=== PATIENT | male | born 1945 | race Caucasian/White ===

== ENCOUNTER 2023-05-09 16:44 | Inpatient (IN) ==
[2023-05-09] MEDS ORDERED: Albuterol/Ipratropium NEB.SOL (2.5/0.5 MG) 3 ML NEB.SOLN INH ONE ×3 (17:18→18:27)
[2023-05-09] MEDS ORDERED: Albuterol/Ipratropium NEB.SOL (2.5/0.5 MG) 3 ML NEB.SOLN ONE (17:25)
[2023-05-09 17:34] LABS: Hematocrit 27.8 % (38-53); Hemoglobin 8.7 g/dL (13.2-16.3); Mean Corpuscular Hemoglobin 23.7 pg (27-33); Mean Corpuscular Hgb Conc 31.2 g/dL (31-36); Red Blood Count 3.66 10^6/uL (4.06-5.63); Red Cell Distribution Width 19.1 % (12-17); White Blood Count 13.7 10^3/uL (3.6-10.2)
[2023-05-09 17:41] LABS: ALT 9 U/L (7-52); Albumin/Globulin Ratio 0.9 (1-3); Alkaline Phosphatase 66 U/L (35-149); Blood Urea Nitrogen 26 mg/dL (6-24); CO2 Carbon Dioxide 30 mmol/L (22-32); Calcium 8.6 mg/dL (8.6-10.3); Chloride 109 mmol/L (101-111); Creatinine, Serum 1.33 mg/dL (0.67-1.17); Globulin 3.5 g/dL (2-4); Glucose 152 mg/dL (70-100); Sodium 142 mmol/L (135-145); Total Protein 6.5 g/dL (6.4-8.9); eGFR CKD-EPI 55.7 (>60)
[2023-05-09 17:44] LABS: High Sens Troponin Baseline 25 pg/mL (<20)
[2023-05-09 17:56] LABS: Anion Gap 3 mmol/L (2-16)
[2023-05-09 17:57] LABS: Platelet Count Platelets clumped. 10^3/uL (150-450)
[2023-05-09 17:58] LABS: ABS Basophils 0.2 10^3/uL (0.0-0.1); ABS Eosinophils 0.3 10^3/uL (0.0-0.5); ABS Monocytes 0.8 10^3/uL (0.0-1.1); ABS Neutrophils 11.5 10^3/uL (1.5-7.6); ABS Nucleated RBC 0.01 10^3/ul; Eosinophil % 2.1 %; Lymphocyte % 7.2 %; Nucleated Red Blood Cells % 0.1 /100 WBC (0.0-0.4)
[2023-05-09 19:07] LABS: PCO2 Arterial 55 mmHg (35-45); PO2 Arterial 103 mmHg (80-100)
[2023-05-09 19:21] LABS: Potassium Redraw 3.2 mmol/L (3.5-5.0)
[2023-05-09] MEDS ORDERED: Ondansetron 4 mg VIAL 2 MG/ML 2 ml VIAL IV PRN (19:23)
[2023-05-09] MEDS ORDERED: Albuterol HFA INHALER 8 gm MDI INH PRN (20:35)
[2023-05-09] MEDS ORDERED: DOXEPIN 3 MG PO PRN (20:35)
[2023-05-09] MEDS ORDERED: Dextrose 50% Syringe 50 ml 25 GM/50 ML SYRINGE IV PUSH PRN (20:48)
[2023-05-09] MEDS: Enoxaparin 40 MG/0.4 ML SYR SUBCUT SCH (21:35)
[2023-05-09] MEDS: DULoxetine DR 60 mg CAP PO SCH (22:01)
[2023-05-10 05:19] LABS: Hematocrit 24.6 % (38-53); Mean Corpuscular Hemoglobin 24.5 pg (27-33); Mean Corpuscular Hgb Conc 32.5 g/dL (31-36); Mean Corpuscular Volume 75.3 fL (80-97); Mean Platelet Volume 8.2 fL (7.5-11.2); Platelet Count 262 10^3/uL (150-450); Red Blood Count 3.26 10^6/uL (4.06-5.63); Red Cell Distribution Width 18.6 % (12-17); White Blood Count 6.6 10^3/uL (3.6-10.2)
[2023-05-10 05:49] LABS: Calcium 8.8 mg/dL (8.6-10.3); Creatinine, Serum 1.36 mg/dL (0.67-1.17); Magnesium 2.4 mg/dL (1.9-2.7); Potassium 5.4 mmol/L (3.5-5.0); eGFR CKD-EPI 54.3 (>60)
[2023-05-10 06:13] LABS: Anisocytosis 1+
[2023-05-10 06:14] LABS: ABS Lymphocytes 0.7 10^3/uL (1.0-4.8); ABS Monocytes 0.3 10^3/uL (0.0-1.1); ABS Neutrophils 5.5 10^3/uL (1.5-7.6); Eosinophil % 0.1 %; Lymphocyte % 10.6 %
[2023-05-10] MEDS ORDERED: INSULIN GLARGINE (NF) 300 UNIT/ML INJ SUBCUT SCH (09:00)
[2023-05-10] MEDS ORDERED: Umeclidin/Vilant 62.5 MDI 62.5/25 mcg 14 INH ELLIPTA DEVICE INH SCH (09:00)
[2023-05-10] MEDS ORDERED: Albuterol 2.5mg/3 ml (0.083%) NEB.SOLN INH ONE (09:07)
[2023-05-10] MEDS ORDERED: Acetylcysteine INH SOL (RT) 200 MG/ML 4 ML VIAL INH ONE (09:07)
[2023-05-10] MEDS: Tiotropium Brom/Olodaterol MDI INH SCH (09:24)
[2023-05-10] MEDS ORDERED: Acetylcysteine INHALATION SOL 200 MG/ML NEB.SOLN 10 ML INH PRN (09:24)
[2023-05-10] MEDS ORDERED: Albuterol 2.5mg/3 ml (0.083%) NEB.SOLN INH PRN (09:28)
[2023-05-10] MEDS: Aspirin EC 81 mg TAB.EC (enteric coated) PO SCH (09:33)
[2023-05-10] MEDS: DULoxetine DR 60 mg CAP PO SCH ×2 (09:33→20:20)
[2023-05-10] MEDS: CMCS: Roflumilast 500 mcg TAB (NF) PO SCH (09:35)
[2023-05-10] MEDS: Insulin GLARGINE 100 un/ml 10 ml VIAL SUBCUT SCH (10:14)
[2023-05-10] MEDS ORDERED: Albuterol/Ipratropium NEB.SOL (2.5/0.5 MG) 3 ML NEB.SOLN INH PRN (15:40)
[2023-05-10] MEDS ORDERED: Albuterol/Ipratropium NEB.SOL (2.5/0.5 MG) 3 ML NEB.SOLN INH ONE (15:41)
[2023-05-10 18:09] LABS: Body Fluid Appearance Cloudy; Body Fluid Color Yellow; Body Fluid Source Pleural Fluid
[2023-05-10 18:45] LABS: Body Fluid WBC 514 /mcL
[2023-05-10 19:58] LABS: Body Fluid Mono 22 %; Body Fluid Other Cells 32; Body Fluid Total Cells Counted 200
[2023-05-10] MEDS: Enoxaparin 40 MG/0.4 ML SYR SUBCUT SCH (20:20)
[2023-05-11 06:49] LABS: ABS Basophils 0.3 10^3/uL (0.0-0.1); ABS Eosinophils 0.6 10^3/uL (0.0-0.5); ABS Lymphocytes 2.7 10^3/uL (1.0-4.8); ABS Monocytes 0.9 10^3/uL (0.0-1.1); ABS Neutrophils 7.9 10^3/uL (1.5-7.6); ABS Nucleated RBC 0.01 10^3/ul; Hematocrit 26.7 % (38-53); Hemoglobin 8.7 g/dL (13.2-16.3); Lymphocyte % 21.6 %; Mean Corpuscular Hemoglobin 24.6 pg (27-33); Mean Corpuscular Hgb Conc 32.8 g/dL (31-36); Mean Platelet Volume 8.3 fL (7.5-11.2); Nucleated Red Blood Cells % 0.1 /100 WBC (0.0-0.4); Platelet Count 263 10^3/uL (150-450); Red Blood Count 3.56 10^6/uL (4.06-5.63); Red Cell Distribution Width 19.4 % (12-17); White Blood Count 12.5 10^3/uL (3.6-10.2)
[2023-05-11 07:00] LABS: Calcium 8.8 mg/dL (8.6-10.3); Creatinine, Serum 1.36 mg/dL (0.67-1.17); Potassium 4.3 mmol/L (3.5-5.0); eGFR CKD-EPI 54.3 (>60)
[2023-05-11] MEDS: Tiotropium Brom/Olodaterol MDI INH SCH (07:02)
[2023-05-11] MEDS: DULoxetine DR 60 mg CAP PO SCH ×2 (08:26→20:39)
[2023-05-11] MEDS: Aspirin EC 81 mg TAB.EC (enteric coated) PO SCH (08:26)
[2023-05-11] MEDS: CMCS: Roflumilast 500 mcg TAB (NF) PO SCH (10:05)
[2023-05-11] MEDS: Insulin GLARGINE 100 un/ml 10 ml VIAL SUBCUT SCH (10:06)
[2023-05-11] MEDS: Albuterol 2.5mg/3 ml (0.083%) NEB.SOLN INH SCH ×2 (12:10→19:11)
[2023-05-11] MEDS ORDERED: Acetylcysteine INHALATION SOL 200 MG/ML NEB.SOLN 10 ML INH SCH (16:00)
[2023-05-11] MEDS: Acetylcysteine INHALATION SOL 200 MG/ML NEB.SOLN 10 ML INH SCH (19:11)
[2023-05-11] MEDS: Enoxaparin 40 MG/0.4 ML SYR SUBCUT SCH (20:40)
[2023-05-12] MEDS: Albuterol 2.5mg/3 ml (0.083%) NEB.SOLN INH SCH ×4 (01:15→19:22)
[2023-05-12] MEDS: Acetylcysteine INHALATION SOL 200 MG/ML NEB.SOLN 10 ML INH SCH ×4 (01:15→19:23)
[2023-05-12] MEDS ORDERED: Lactated Ringers 1000 ml BAG 1,000 ML IV SCH (06:00)
[2023-05-12 07:11] LABS: Hematocrit 24.2 % (38-53); Hemoglobin 7.7 g/dL (13.2-16.3); Mean Corpuscular Hemoglobin 24.3 pg (27-33); Mean Platelet Volume 8.7 fL (7.5-11.2); Platelet Count 175 10^3/uL (150-450); Red Blood Count 3.18 10^6/uL (4.06-5.63); Red Cell Distribution Width 19.8 % (12-17); White Blood Count 9.1 10^3/uL (3.6-10.2)
[2023-05-12 07:26] LABS: Calcium 8.5 mg/dL (8.6-10.3); Creatinine, Serum 1.32 mg/dL (0.67-1.17); Magnesium 2.5 mg/dL (1.9-2.7); Potassium 3.9 mmol/L (3.5-5.0); eGFR CKD-EPI 56.2 (>60)
[2023-05-12] MEDS: Tiotropium Brom/Olodaterol MDI INH SCH (07:29)
[2023-05-12] MEDS ORDERED: Metoclopramide 5 MG/ML VIAL (10 mg) ONE (10:15)
[2023-05-12] MEDS ORDERED: Rocuronium 50 mg VIAL 10 mg/ml 5 ml VIAL (50 mg) ONE (10:15)
[2023-05-12] MEDS ORDERED: fentaNYL 100 mcg/2 ml 50 MCG/ML VIAL ONE (10:15)
[2023-05-12] MEDS ORDERED: Ondansetron 4 mg VIAL 2 MG/ML 2 ml VIAL ONE (10:15)
[2023-05-12] MEDS ORDERED: Propofol 10 MG/ML 20 ML BTL ONE (10:15)
[2023-05-12] MEDS ORDERED: fentaNYL 100 mcg/2 ml 50 MCG/ML VIAL IV PRN (10:22)
[2023-05-12] MEDS ORDERED: Naloxone 0.4 mg VIAL 0.4 mg/ml 1 ml VIAL IV PRN (10:22)
[2023-05-12] MEDS ORDERED: Prochlorperazine 5 mg/ml 2 ml VIAL (10 mg) IV PRN (10:22)
[2023-05-12] MEDS ORDERED: Albuterol 2.5mg/3 ml (0.083%) NEB.SOLN INH ONE (11:36)
[2023-05-12] MEDS ORDERED: Albuterol/Ipratropium NEB.SOL (2.5/0.5 MG) 3 ML NEB.SOLN INH ONE ×2 (11:52→12:09)
[2023-05-12] MEDS ORDERED: Albuterol/Ipratropium NEB.SOL (2.5/0.5 MG) 3 ML NEB.SOLN ONE ×2 (11:54→12:18)
[2023-05-12] MEDS ORDERED: Furosemide 20 mg/2 ml IV VIAL IV SLOW PU ONE (12:09)
[2023-05-12] MEDS ORDERED: Furosemide 40 mg/4 ml IV VIAL IV SLOW PU ONE (12:09)
[2023-05-12] MEDS ORDERED: Furosemide 20 mg/2 ml IV VIAL ONE (12:20)
[2023-05-12] MEDS: Insulin GLARGINE 100 un/ml 10 ml VIAL SUBCUT SCH (14:29)
[2023-05-12] MEDS: Aspirin EC 81 mg TAB.EC (enteric coated) PO SCH (14:32)
[2023-05-12] MEDS: CMCS: Roflumilast 500 mcg TAB (NF) PO SCH (14:32)
[2023-05-12] MEDS: DULoxetine DR 60 mg CAP PO SCH ×2 (14:33→21:33)
[2023-05-12] MEDS: Enoxaparin 40 MG/0.4 ML SYR SUBCUT SCH (21:33)
[2023-05-13 02:19] LABS: PCO2 Arterial 49 mmHg (35-45); PO2 Arterial 94 mmHg (80-100)
[2023-05-13] MEDS: Albuterol 2.5mg/3 ml (0.083%) NEB.SOLN INH SCH ×5 (02:38→23:12)
[2023-05-13] MEDS: Acetylcysteine INHALATION SOL 200 MG/ML NEB.SOLN 10 ML INH SCH ×5 (02:38→23:12)
[2023-05-13] MEDS: Tiotropium Brom/Olodaterol MDI INH SCH (07:43)
[2023-05-13] MEDS ORDERED: Lorazepam PYXIS KEY PRN (09:20)
[2023-05-13] MEDS ORDERED: LORazepam 2 mg VIAL 1 ml IV PUSH ONE (09:20)
[2023-05-13] MEDS: Insulin GLARGINE 100 un/ml 10 ml VIAL SUBCUT SCH (09:47)
[2023-05-13] MEDS: CMCS: Roflumilast 500 mcg TAB (NF) PO SCH (09:48)
[2023-05-13] MEDS: Aspirin EC 81 mg TAB.EC (enteric coated) PO SCH (09:48)
[2023-05-13] MEDS: DULoxetine DR 60 mg CAP PO SCH ×2 (09:48→21:12)
[2023-05-13 10:27] LABS: Fluid Type, Protein, Total PLEURAL; Glucose, BF 224 mg/dL; Lactate Dehydrogenase, BF 96 U/L
[2023-05-13] MEDS ORDERED: Morphine 2 MG/ML SYRINGE IV ONE (11:25)
[2023-05-13 11:58] LABS: Fluid Type, Albumin PLEURAL
[2023-05-13] MEDS: Morphine ORAL CONCENTRATE 5 MG/0.25 ML ORAL.SYRIN SL PRN (21:11)
[2023-05-13] MEDS: Enoxaparin 40 MG/0.4 ML SYR SUBCUT SCH (21:13)
[2023-05-14] MEDS: Morphine ORAL CONCENTRATE 5 MG/0.25 ML ORAL.SYRIN SL PRN ×2 (04:20→10:15)
[2023-05-14 05:56] LABS: ABS Basophils 0.2 10^3/uL (0.0-0.1); ABS Eosinophils 0.2 10^3/uL (0.0-0.5); ABS Lymphocytes 1.4 10^3/uL (1.0-4.8); ABS Monocytes 0.9 10^3/uL (0.0-1.1); ABS Neutrophils 10.5 10^3/uL (1.5-7.6); ABS Nucleated RBC 0.02 10^3/ul; Eosinophil % 1.9 %; Hematocrit 23.1 % (38-53); Hemoglobin 7.4 g/dL (13.2-16.3); Lymphocyte % 10.3 %; Mean Corpuscular Hemoglobin 23.9 pg (27-33); Mean Corpuscular Hgb Conc 31.9 g/dL (31-36); Mean Platelet Volume 8.2 fL (7.5-11.2); Nucleated Red Blood Cells % 0.1 /100 WBC (0.0-0.4); Platelet Count 270 10^3/uL (150-450); Red Blood Count 3.08 10^6/uL (4.06-5.63); Red Cell Distribution Width 19.7 % (12-17); White Blood Count 13.2 10^3/uL (3.6-10.2)
[2023-05-14 06:11] LABS: Anion Gap 7 mmol/L (2-16); Blood Urea Nitrogen 39 mg/dL (6-24); CO2 Carbon Dioxide 31 mmol/L (22-32); Calcium 8.9 mg/dL (8.6-10.3); Chloride 105 mmol/L (101-111); Creatinine, Serum 1.51 mg/dL (0.67-1.17); Glucose 89 mg/dL (70-100); Sodium 143 mmol/L (135-145); eGFR CKD-EPI 47.9 (>60)
[2023-05-14 06:14] LABS: % Iron Saturation 9 % (15-55); .Transferrin 155 mg/dL (203-362); Iron < 20 ug/dL (50-212); Total Iron Binding Capacity 217 mcg/dL (250-450); Transferrin 155 mg/dL (203-362); Unsaturated Iron Binding 197 ug/dL
[2023-05-14 06:31] LABS: Ferritin 347.9 ng/mL (24-336)
[2023-05-14] MEDS: Acetylcysteine INHALATION SOL 200 MG/ML NEB.SOLN 10 ML INH SCH ×3 (07:00→19:19)
[2023-05-14] MEDS: Albuterol 2.5mg/3 ml (0.083%) NEB.SOLN INH SCH ×3 (07:00→19:20)
[2023-05-14] MEDS: Tiotropium Brom/Olodaterol MDI INH SCH ×2 (07:01→07:15)
[2023-05-14] MEDS ORDERED: Morphine ORAL CONCENTRATE 5 MG/0.25 ML ORAL.SYRIN SL PRN (11:02)
[2023-05-14] MEDS: Aspirin EC 81 mg TAB.EC (enteric coated) PO SCH (12:18)
[2023-05-14] MEDS: CMCS: Roflumilast 500 mcg TAB (NF) PO SCH (12:19)
[2023-05-14] MEDS: DULoxetine DR 60 mg CAP PO SCH ×2 (12:19→21:47)
[2023-05-14] MEDS: Cefepime 2 GM in Dextrose 2 GM/50 ML BAG IV SCH ×2 (12:39→21:45)
[2023-05-14] MEDS: Insulin GLARGINE 100 un/ml 10 ml VIAL SUBCUT SCH (12:41)
[2023-05-14] MEDS ORDERED: MINOCYCLINE IVPB SCH (14:00)
[2023-05-14] MEDS ORDERED: NS 0.9% IVPB SCH (14:00)
[2023-05-14 14:07] VITALS: BP 137/66
[2023-05-14] MEDS ORDERED: CMCS: Minocycline 50 mg CAP (NF) PO SCH (14:30)
[2023-05-14] MEDS: CMCS: Minocycline 50 mg CAP (NF) PO SCH ×2 (15:34→23:23)
[2023-05-14] MEDS: Azithromycin 500 mg/250 ml NS 500 MG/250 ML BAG IVPB SCH (15:34)
[2023-05-14] MEDS: Morphine ORAL CONCENTRATE 5 MG/0.25 ML ORAL.SYRIN SL SCH ×2 (18:08→21:47)
[2023-05-14] MEDS ORDERED: Saline NASAL SPRAY 0.65% BTL BOTH NARES PRN (18:37)
[2023-05-14] MEDS: Enoxaparin 40 MG/0.4 ML SYR SUBCUT SCH (21:47)
[2023-05-15] MEDS: Acetylcysteine INHALATION SOL 200 MG/ML NEB.SOLN 10 ML INH SCH ×2 (01:03→07:19)
[2023-05-15] MEDS: Albuterol 2.5mg/3 ml (0.083%) NEB.SOLN INH SCH ×2 (01:04→07:19)
[2023-05-15] MEDS: Morphine ORAL CONCENTRATE 5 MG/0.25 ML ORAL.SYRIN SL SCH ×6 (01:46→21:57)
[2023-05-15] MEDS: Morphine ORAL CONCENTRATE 5 MG/0.25 ML ORAL.SYRIN SL PRN ×3 (03:06→16:49)
[2023-05-15] MEDS: Atropine 1% OPHTH.SOL 1 DROP BTL 2-5 ML SL PRN ×2 (03:32→20:43)
[2023-05-15] MEDS: Tiotropium Brom/Olodaterol MDI INH SCH (07:19)
[2023-05-15] MEDS: DULoxetine DR 60 mg CAP PO SCH ×2 (08:46→20:39)
[2023-05-15] MEDS: CMCS: Minocycline 50 mg CAP (NF) PO SCH ×2 (08:46→20:40)
[2023-05-15] MEDS: CMCS: Roflumilast 500 mcg TAB (NF) PO SCH (08:46)
[2023-05-15] MEDS: Cefepime 2 GM in Dextrose 2 GM/50 ML BAG IV SCH ×2 (10:21→21:51)
[2023-05-15] MEDS ORDERED: Acetylcysteine INHALATION SOL 200 MG/ML NEB.SOLN 10 ML INH PRN (11:09)
[2023-05-15] MEDS ORDERED: Albuterol 2.5mg/3 ml (0.083%) NEB.SOLN INH PRN (11:10)
[2023-05-15] MEDS: Azithromycin 500 mg/250 ml NS 500 MG/250 ML BAG IVPB SCH (15:38)
[2023-05-16] MEDS: Morphine ORAL CONCENTRATE 5 MG/0.25 ML ORAL.SYRIN SL SCH ×6 (02:36→23:10)
[2023-05-16] MEDS: Atropine 1% OPHTH.SOL 1 DROP BTL 2-5 ML SL PRN ×3 (04:53→17:57)
[2023-05-16] MEDS: Morphine ORAL CONCENTRATE 5 MG/0.25 ML ORAL.SYRIN SL PRN ×2 (07:37→20:18)
[2023-05-16] MEDS: Tiotropium Brom/Olodaterol MDI INH SCH (09:24)
[2023-05-16] MEDS: CMCS: Minocycline 50 mg CAP (NF) PO SCH (10:11)
[2023-05-16] MEDS: DULoxetine DR 60 mg CAP PO SCH (10:14)
[2023-05-16] MEDS: Cefepime 2 GM in Dextrose 2 GM/50 ML BAG IV SCH (10:49)
[2023-05-17] MEDS: Morphine ORAL CONCENTRATE 5 MG/0.25 ML ORAL.SYRIN SL SCH ×2 (03:10→05:25)
[2023-05-17] MEDS: Atropine 1% OPHTH.SOL 1 DROP BTL 2-5 ML SL PRN (05:24)
[2023-05-17] MEDS: Morphine ORAL CONCENTRATE 5 MG/0.25 ML ORAL.SYRIN SL PRN (08:25)
[2023-05-17] MEDS: Tiotropium Brom/Olodaterol MDI INH SCH (09:20)
== END 2023-05-17 08:50 | disposition hospice, home (50) | DRG 133 ==
LOC: ED 16:44 → SUATTDRO 19:23 → EDHOLD 19:23 → ICU 20:36 → MED 05-10 22:16
PROVIDERS: ADMIT Student in an Organized Health Care Education/Training Program; ATTEND Internal Medicine